=== PATIENT | female | born 1960 ===

== ENCOUNTER 2021-07-31 14:59 | Inpatient (IN) | payer OTHER ==
[~2021-07-31] VITALS: Ht 167.6 cm; Wt 55.8 kg
[2021-08-04] MEDS ORDERED: ANASTROZOLE1 MG PO (14:01)
[2021-08-04] MEDS ORDERED: ZETIA10 MG PO (14:01)
[2021-08-04] MEDS ORDERED: PLAQUENIL PO (14:01)
[2021-08-04] MEDS ORDERED: ALENDRONATE SOD70 MG PO (14:02)
[2021-08-04] MEDS ORDERED: OMEGA-31000 MG PO (14:02)
[2021-08-04] MEDS ORDERED: NABUMETONE750 MG PO (14:03)
[2021-08-04] MEDS ORDERED: [UNRECOGNIZED DRUG - OTHER] PO (14:03)
[2021-08-07] MEDS ORDERED: PEPCID AC20 MG PO (08:17)
[2021-08-07] MEDS ORDERED: INTESTINEX680 M1 PO (08:17)
[2021-08-07] MEDS ORDERED: ULTRACET PO (08:17)
[2021-08-07] MEDS ORDERED: AMOX1TAB5 PO (08:17)
== END 2021-08-07 11:05 | disposition home or self-care (01) | DRG 334 ==
LOC: O/R 08-06 06:51 → SURH 08-06 11:15 → SURG 08-06 11:22 → SURH 08-06 12:15 → SURG 08-07 11:05
PROVIDERS: ADMIT Surgery; ATTEND Surgery
PROC: 3E0T3BZ Introduction of Anesthetic Agent into Peripheral Nerves and Plexi, Percutaneous Approach (ICD-10-PCS; 2021-08-06)
PROC: 0DBP4ZZ Excision of Rectum, Percutaneous Endoscopic Approach (ICD-10-PCS; principal; 2021-08-06 12:15)
DX: C20 Malignant neoplasm of rectum (principal); Z20.822 Contact with and (suspected) exposure to COVID-19